=== PATIENT | male | born 1990 | race African-American/Black ===

== ENCOUNTER 2017-09-18 07:14 | Emergency (ER) | payer SELFPAY ==
[~2017-09-18] VITALS: Ht 175.3 cm; Wt 61.3 kg
[2017-09-18 07:16] VITALS: BP 145/83
[2017-09-18] MEDS ORDERED: CEFTRIAXONE 250 MG IM ONE (08:00)
[2017-09-18] MEDS ORDERED: AZITHROMYCIN 500 MG TABLET PO ONE (08:00)
[2017-09-18] MEDS ORDERED: CEFTRIAXONE 250 MG ONE (08:45)
[2017-09-18] MEDS ORDERED: LIDOCAINE-MPF 1%, 2ML ONE (08:46)
[2017-09-18] MEDS ORDERED: AZITHROMYCIN 250 MG TABLET ONE (08:46)
== END 2017-09-18 09:05 | disposition home or self-care (01) ==
LOC: ED 09:02
DX: S60.222A Contusion of left hand, initial encounter (principal); B35.6 Tinea cruris; Y04.0XXA Assault by unarmed brawl or fight, initial encounter; Y93.89 Activity, other specified; Y92.89 Other specified places as the place of occurrence of the external cause; Y99.8 Other external cause status
CPT/HCPCS: 73130; 87491; 87591; 96372; 99285; J0696